=== PATIENT | male | born 1965 | race Caucasian/White ===

== ENCOUNTER → 2017-01-08 | Outpatient (CLI) | payer OTHER ==
[2017-01-08 12:12] LABS: BASO % 0.2 %; BASO ABS # 0.01 K/uL (0-0.2); COMPLETE YES; EOS % 2.2 %; HEMATOCRIT 42.4 % (42-52); IG% 0.2 %; LYMPH % 30.3 %; LYMPH ABS # 1.69 K/uL (1.2-3.4); MEAN CELL VOLUME 84.5 fL (80-100); MEAN CORPUSCULAR HEMOGLOBIN 29.9 pg (25-34); MEAN CORPUSCULAR HGB CONC 35.4 g/dl (32-36); MEAN PLATELET VOLUME 10.9 fL (7.4-10.4); MONO % 8.6 %; NEUT % 58.5 %; PLATELET COUNT 230 K/uL (130-400); RED BLOOD COUNT 5.02 M/uL (4.7-6.1); WHITE BLOOD COUNT 5.57 K/uL (4.8-10.8)
[2017-01-08 12:35] LABS: ALT/SGPT 29 U/L (12-78); AST/SGOT 11 U/L (15-37); BLOOD UREA NITROGEN 15 mg/dl (7-18); BUN/CREATININE RATIO 16.9 (10-20); CARBON DIOXIDE 30 mmol/L (21-32); CHLORIDE 107 mmol/L (98-107); CHOLESTEROL 181 mg/dl (0-200); CREATININE 0.87 mg/dl (0.60-1.40); GLUCOSE 113 mg/dl (70-99); POTASSIUM 4.2 mmol/L (3.5-5.1); SODIUM 142 mmol/L (136-145)
[2017-01-08 12:45] LABS: ALB/GLOB RATIO 1.3 (0.9-2); ALKALINE PHOSPHATASE 58 U/L (45-117); CHOLESTEROL/HDL RATIO 4.6; HDL CHOLESTEROL 39 mg/dl; LDL CHOLESTEROL CALCULATED 118 mg/dl; TRIGLYCERIDES 122 mg/dl (0-150); VERY LOW DENSITY LIPOPROT CALC 24 mg/dl
== END | disposition home or self-care (01) ==
LOC: C.LABPBG 07:47
PROVIDERS: ATTEND Neuromusculoskeletal Medicine & OMM
DX: Z00.00 Encounter for general adult medical examination without abnormal findings (principal); E66.9 Obesity, unspecified; Z12.5 Encounter for screening for malignant neoplasm of prostate